=== PATIENT | female | born 1955 ===

== ENCOUNTER 2018-07-17 18:26 | Emergency (ER) | payer OTHER ==
[2018-07-17 18:51] VITALS: RESP 16
--- NOTE | 2018-07-17 19:12 | ED PDOC ---
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 Pain is described as burning and stabbing in nature. Daughter in law states patient has been limping at home due to the pain. Otherwise, denies falls/trauma, prior knee surgery/injury, leg swelling, pedal edema, prolonged immobility, tobacco use, SOB/cough and calf pain/ tenderness. PMD: [facility] Past Medical History Reviewed: Historical Data, Nursing Documentation, Vital Signs Vital Signs: Last Vital Signs Temp 97.8 F 07/17/18 18:50 Pulse 73 07/17/18 18:50 Resp 16 07/17/18 18:50 BP 173/73 H 07/17/18 18:50 Pulse Ox 99 07/17/18 18:50 - Medical History PMH: Diabetes, Gastritis, GERD, HTN, Osteoporosis - Surgical History Surgical History: (x 2) - Family History Family History: States: Unknown Family Hx - Social History Current smoker - smoking cessation education provided: No Alcohol: None Drugs: Denies - Home Medications Home Medications: Ambulatory Orders Medication Instructions Recorded Cyclobenzaprine [Cyclobenzaprine 10 mg PO TID PRN #20 tab 09/11/17 HCl] Naproxen [Naprosyn] 1 tab PO BID PRN #20 tab 09/11/17 Acetaminophen [Acetaminophen 8 650 mg PO Q8 PRN #21 tablet.er 07/17/18 Hour] Meloxicam [Mobic] 15 mg PO DAILY PRN #14 tab 07/17/18 - Allergies Allergies/Adverse Reactions: Allergies Allergy/AdvReac Type Severity Reaction Status Date / Time No Known Allergies Allergy Verified 09/11/17 19:58 Review of Systems ROS Statement: Except As Marked, All Systems Reviewed And Found Negative Musculoskeletal: Positive for: Leg Pain (left knee radiating up into thigh and hip described as burning and stabbing). Negative for: Other (pedal edema; calf tenderess / swelling; leg swelling) Physical Exam - Reviewed Nursing Documentation Reviewed: Yes Vital Signs Reviewed: Yes - Physical Exam Comments: GENERAL APPEARANCE: Patient is awake, alert, oriented x 3, in no acute distress. Resting comfortably. SKIN: Warm, dry; (-) cyanosis. NECK: Supple, FROM ENT: Mucus membranes moist. Airway patent, (-) stridor. LEFT LOWER EXTREMITY: (+) diffuse tenderness to knee, (-) edema, (-) ecchymosis, (-) erythema, (+) full ROM of knee with pain on flexion. Remainder of LLE: nontender with FROM. Achilles tendon intact and nontender; no calf tenderness, no pedal edema. Capillary refill intact. Sensation intact throughout. (+) distal pulse. (-) palpable cord CARDIOVASCULAR: regular rate and rhythm. RESPIRATORY: lungs clear to auscultation bilaterally, respirations even and nonlabored. NEUROLOGIC: Mental status as above. Gait: limping. Speech: clear. (-) facial asymmetry (-) aphasia - ECG O2 Sat by Pulse Oximetry: 99 (RA) Pulse Ox Interpretation: Normal Medical Decision Making Medical Decision Making: Initial Impression: acute knee pain, probable arthritis Time: 1899 Initial Plan: --Left knee XR --Toradol 15mg IM --Ultram 50mg PO (not driving home) --Reevaluate 1929 Knee XR: (+) mild degenerative changes (-) acute bony pathology as read by Joel MARSH Repeat BP: 154/88 Zak bandage applied to knee by ED RN. NV intact after placement. On re-evaluation, patient reports improvement of symptoms. On exam, patient remains AAOx3, in no acute distress. Vitals stable. RICE encouraged. Lab/Diagnostic results d/w the patient in great detail. Diagnosis of acute knee pain, osteoarthritis d/w the patient. Based on history, exam and diagnostic results, plan will be for outpatient follow up with PMD/ortho. Patient instructed to follow-up with pmd / referral provided / the clinic in 1- 2 days without fail. Advised to take medication as prescribed. Return to the emergency room at any time for any new or worsening symptoms. Patient states she fully agrees with and understands discharge instructions. States that she agrees with the plan and disposition. Verbalized and repeated discharge instructions and plan. I have given the patient opportunity to ask any additional questions. Scribe Attestation: Documented by Sweta Palomares, acting as a scribe for Vijaya Maldonado PA-C. Provider Scribe Attestation: All medical record entries made by the Scribe were at my direction and personally dictated by me. I have reviewed the chart and agree that the record accurately reflects my personal performance of the history, physical exam, medical decision making, and the department course for this patient. I have also personally directed, reviewed, and agree with the discharge instructions and disposition. Disposition - Clinical Impression Clinical Impression: Acute knee pain, Osteoarthritis - Patient ED Disposition Is Patient to be Admitted: No Counseled Patient/Family Regarding: Studies Performed, Diagnosis, Need For Followup, Rx Given - Disposition Referrals: Celso Valencia [email or web address] [Outside] Sumanth Sutton III, MD [Staff Provider] - Disposition: Routine/Home Disposition Time: 19:30 Condition: STABLE Additional Instructions: La atencin mdica de emergencia que recibi hoy se dirigi a analy sntomas agudos. Si le recetaron algn medicamento, llnelo y tmelo segn las indicaciones. Los sntomas pueden tardar varios mcmahan en resolverse. Regrese al Departamento de Emergencias si analy sntomas empeoran, no mejoran o si tiene otros problemas. Comunquese con zhang mdico dentro de 2 mcmahan para benedict nueva evaluacin y celi un seguimiento o llame a clare de los mdicos / clnicas a los que melchor sido referido y que figuran en el formulario de Informacin de visita al paciente que se incluye en zhang paquete de piero. Lleve todos los documentos que recibi al momento del piero junto con los medicamentos que est tomando para zhang visita de seguimiento. Nuestro tratamiento no puede reemplazar la atencin mdica continua por parte de un proveedor de atencin primaria (PCP) fuera del departamento de emergencias. Prescriptions: Acetaminophen [Acetaminophen 8 Hour] 650 mg PO Q8 PRN #21 tablet.er PRN Reason: Pain, Moderate (4-7) Meloxicam [Mobic] 15 mg PO DAILY PRN #14 tab PRN Reason: Pain, Moderate (4-7) Instructions: Osteoarthritis, Knee Pain (DC), Patellofemoral Pain Forms: [employer] (Polish) Print Language: INDONESIAN - POA Present On Arrival: None
[2018-07-17 19:50] VITALS: BP 154/88; PULSE 72; TEMP 97.6
[2018-07-17 21:32] VITALS: O2SAT 99
--- NOTE | 2018-07-18 07:52 | RAD ---
Date of service: 07/17/2018 PROCEDURE: Left Knee Radiographs. HISTORY: Pain. COMPARISON: None. TECHNIQUE: 2 views obtained. FINDINGS: BONES: No fracture. JOINTS: Arthrosis lateral patellofemoral joint most notable lateral patellar tilting with lateral patellofemoral joint space narrowing JOINT EFFUSION: None. OTHER FINDINGS: None. IMPRESSION: No fracture or lytic lesion. Lateral patellar tilt. Lateral patellofemoral arthrosis. Findings can be seen in a clinical anterior knee pain syndrome
== END 2018-07-17 20:59 | disposition home or self-care (01) ==
LOC: H.ER 18:26
DX: M25.562 Pain in left knee (principal); M81.0 Age-related osteoporosis without current pathological fracture; E11.9 Type 2 diabetes mellitus without complications; I10 Essential (primary) hypertension; M19.90 Unspecified osteoarthritis, unspecified site
CPT/HCPCS: 73562; 96372; 99283; J1885